=== PATIENT | male | born 1975 | race Caucasian/White ===

== ENCOUNTER 2022-12-14 19:03 | Emergency (ER) | payer SELFPAY ==
[~2022-12-14] VITALS: Ht 177.8 cm; Wt 99.8 kg
[2022-12-14 19:50] VITALS: BP 136/90
--- NOTE | 2022-12-14 19:53 | NUR ---
TO LOBBY A/W BED AMBULATORY
[2022-12-14] MEDS ORDERED: ACETAMINOPHEN EXTRA STRENGTH 500 MG TAB PO ONE (20:45)
--- NOTE | 2022-12-14 21:03 | NUR ---
PT TAKEN TO RADIOLOGY
--- NOTE | 2022-12-14 21:16 | NUR ---
PT RETURN FROM RADIOLOGY
[2022-12-14] MEDS ORDERED: IBUP-2213 PO (22:19)
[2022-12-14] MEDS ORDERED: ACETAMINOPHEN EXTRA STRENGTH 500 MG TAB ONE (22:26)
--- NOTE | 2022-12-14 22:30 | NUR ---
PT LEFT W/O INSTRUCTIONS OR MEDICATION.
== END 2022-12-14 22:30 | disposition home or self-care (01) ==
LOC: MED 19:03
DX: S43.492A Other sprain of left shoulder joint, initial encounter (principal); S00.83XA Contusion of other part of head, initial encounter; W18.30XA Fall on same level, unspecified, initial encounter; Y93.89 Activity, other specified; Y92.89 Other specified places as the place of occurrence of the external cause; Y99.8 Other external cause status
CPT/HCPCS: 70450; 70486; 73030; 99284